=== PATIENT | male | born 1965 | race Two or more races ===

== ENCOUNTER 2021-09-24 09:40 | Outpatient (CLI) | payer OTHER | END 2021-09-24 09:44 | disposition home or self-care (01) | LOC: PPH VACUNA 09:40 | PROVIDERS: ATTEND Emergency Medicine Pediatric Emergency Medicine | DX: Z23 Encounter for immunization (principal) ==

== ENCOUNTER 2022-12-27 07:09 | Outpatient (CLI) | payer OTHER | END 2022-12-27 07:12 | disposition home or self-care (01) | LOC: SONOGRAMA 07:09 | PROVIDERS: ATTEND Urology | DX: C61 Malignant neoplasm of prostate (principal); D29.1 Benign neoplasm of prostate; R97.20 Elevated prostate specific antigen [PSA] ==

== ENCOUNTER 2023-04-07 07:35 | Outpatient (CLI) | payer OTHER | END 2023-04-07 07:39 | disposition home or self-care (01) | LOC: NUCLEAR 07:35 | PROVIDERS: ATTEND Urology | DX: I25.110 Atherosclerotic heart disease of native coronary artery with unstable angina pectoris (principal) ==

== ENCOUNTER 2024-10-06 08:56 | Outpatient (CLI) | payer OTHER | END 2024-10-06 09:12 | disposition home or self-care (01) | LOC: RAD 08:56 | PROVIDERS: ATTEND Orthopaedic Surgery | DX: M25.561 Pain in right knee (principal); M25.562 Pain in left knee ==

== ENCOUNTER 2025-02-22 10:01 | Outpatient (CLI) | payer OTHER | END 2025-02-22 10:09 | disposition home or self-care (01) | LOC: SONOGRAMA 10:01 | PROVIDERS: ATTEND Orthopaedic Surgery | DX: M25.511 Pain in right shoulder (principal) ==